=== PATIENT | female | born 1995 | race Two or more races ===

== ENCOUNTER 2024-01-02 12:56 | Emergency (ER) | payer MEDICAID, OTHER ==
[~2024-01-02] VITALS: Ht 160 cm; Wt 91.1 kg
[2024-01-02 14:19] LABS: Urine Bacteria None Seen /hpf (None Seen)
[2024-01-02 14:50] LABS: Urine Blood Negative /uL (Negative); Urine Clarity Clear (Clear); Urine Color Light-Yellow (Yellow); Urine Protein, UAD Negative (Negative); Urine Specific Gravity 1.019 (1.001-1.035); Urine Urobilinogen Normal (Negative); Urine WBC 4 /hpf (0 - 5)
[2024-01-02 16:35] VITALS: BP 110/51; PULSE 71; RESP 16; TEMP 98.2; O2SAT 100
== END 2024-01-02 16:42 | disposition home or self-care (01) ==
LOC: ER 13:00
DX: R10.2 Pelvic and perineal pain (principal); Z34.01 Encounter for supervision of normal first pregnancy, first trimester; Z30.431 Encounter for routine checking of intrauterine contraceptive device; Z3A.01 Less than 8 weeks gestation of pregnancy
CPT/HCPCS: 36415; 76801; 76817; 81001; 81025; 84702